=== PATIENT | male | born 1990 | race Caucasian/White ===

== ENCOUNTER 2017-06-21 20:04 | Emergency (ER) | payer OTHER ==
[~2017-06-21] VITALS: Ht 180.3 cm; Wt 81.6 kg
[2017-06-21] MEDS ORDERED: Norco 5mg/325mg tab ORAL ONE (20:15)
[2017-06-21 20:22] VITALS: BP 122/88
[2017-06-21] MEDS ORDERED: PERCOCET 5-3251 EACH ORAL (21:12)
[2017-06-21 21:30] VITALS: BP 128/88
[2017-06-21] MEDS ORDERED: Morphine Sulfate 4mg/ml Inj IM ONE (21:30)
[2017-06-21] MEDS ORDERED: oxyCODONE HCL/Acetaminophen 5/325mg ORAL ONE (22:00)
[2017-06-21 22:05] VITALS: BP 132/80
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
== END 2017-06-21 22:05 | disposition home or self-care (01) ==
LOC: EDBD 20:04 → EMR 21:51
DX: S42.301A Unspecified fracture of shaft of humerus, right arm, initial encounter for closed fracture (principal); X58.XXXA Exposure to other specified factors, initial encounter; Y93.72 Activity, wrestling; Y92.9 Unspecified place or not applicable
CPT/HCPCS: 29125; 73080; 96372; 99283; J2270